=== PATIENT | female | born 1995 | race Caucasian/White ===

== ENCOUNTER 2023-06-09 18:27 | Inpatient (IN) | payer OTHER ==
[2023-06-09] MEDS ORDERED: ACETAMINOPHEN 325 MG TABLET (FP) PO PRN (19:32)
[2023-06-09] MEDS ORDERED: BENZOCAINE 20% 57 GM BOTTLE TP PRN (19:32)
[2023-06-09] MEDS ORDERED: METHYLERGONOVINE MALEATE 0.2 MG/1 ML AMP IM PRN (19:32)
[2023-06-09] MEDS ORDERED: METHYLERGONOVINE MALEATE 0.2 MG/1 ML AMP IM ONE (19:32)
[2023-06-09] MEDS ORDERED: BENZOCAINE 28 GM HEMORRHOIDAL OINTMENT TP PRN (19:32)
[2023-06-09] MEDS ORDERED: oxyCODONE HCL 5 MG TABLET PO PRN (19:32)
[2023-06-09] MEDS ORDERED: BISACODYL 10 MG SUPP.RECT RC PRN (19:32)
[2023-06-09] MEDS ORDERED: WITCH HAZEL 50% (TUCKS) 40 PAD/JAR PAD TP PRN (19:32)
[2023-06-09] MEDS ORDERED: ELECTROLYTE-148 SOLN 1,000 ML IV SCH (19:45)
[2023-06-09] MEDS ORDERED: OXYTOCIN 20 UNITS in 0.9% NS 20 UNIT/1,000 ML INFUS.BAG IV SCH (19:45)
[2023-06-09 19:47] LABS: CORD BASE EXCESS -5.4 mmol/L (0-2); CORD HCO3 19.6 mmHg (20-29); CORD PCO2 36.9 mmHg (30-78); CORD pH 7.344 (7.14-7.44)
[2023-06-09 19:49] LABS: CORD BASE EXCESS -9.9 mmol/L (0-2); CORD HCO3 18.4 mmHg (20-29); CORD PCO2 49.2 mmHg (30-78); CORD pH 7.191 (7.14-7.44)
[2023-06-09 21:03] VITALS: BMI 26.6
[2023-06-09] MEDS ORDERED: OXYTOCIN 20 UNITS in 0.9% NS 20 UNIT/1,000 ML INFUS.BAG IV ONE (21:26)
[2023-06-09 21:49] LABS: BASO % 0.2 % (0-2.0); HEMATOCRIT 36.8 % (32.4-45.2); HEMOGLOBIN 11.6 GM/dL (10.7-15.3); LYMPH % 7.1 % (8-40); MCH 24.6 pg (25.7-33.7); MCHC 31.6 g/dl (32.0-36.0); MEAN CELL VOLUME 77.9 fl (80-96); MEAN PLT VOLUME 8.8 fl (7.5-11.1); MONO % 2.8 % (3.8-10.2); NEUT % 89.9 % (42.8-82.8); PLATELET COUNT 299 10^3/uL (134-434); RBC 4.72 M/mm3 (3.60-5.2); RDW 15.5 % (11.6-15.6); WHITE BLOOD COUNT 15.1 K/mm3 (4.0-10.0)
[2023-06-09 21:59] LABS: INR 0.96 (0.83-1.09); PROTHROMBIN TIME (PATIENT) 11.1 SEC (9.7-13.0)
[2023-06-09 22:01] LABS: ACTIVATED PTT 27.8 SECONDS (25.2-36.5)
[2023-06-09 22:26] LABS: METHADONE, UR NEGATIVE (NEGATIVE); PHENCYCLIDINE,URINE NEGATIVE (NEGATIVE); URINE BENZODIAZEPINES NEGATIVE (NEGATIVE)
[2023-06-09 22:27] LABS: OPIATES, URI NEGATIVE (NEGATIVE); URINE BARBITURATES NEGATIVE (NEGATIVE)
[2023-06-09 22:31] LABS: COCAINE, UR NEGATIVE (NEGATIVE); URINE AMPHETAMINES NEGATIVE (NEGATIVE)
[2023-06-09 22:32] LABS: POTASSIUM 3.6 mmol/L (3.5-5.1)
[2023-06-09 22:33] LABS: CALCIUM 8.7 mg/dL (8.5-10.1)
[2023-06-09 22:34] LABS: BLOOD UREA NITROGEN 6.7 mg/dL (7-18)
[2023-06-09 22:37] LABS: CREATININE 0.5 mg/dL (0.55-1.3)
[2023-06-09] MEDS: IBUPROFEN 600 MG TABLET (FP) PO PRN (22:57)
[2023-06-10 08:34] LABS: BASO % 0.4 % (0-2.0); EOS % 0.8 % (0-4.5); HEMATOCRIT 30.5 % (32.4-45.2); HEMOGLOBIN 9.9 GM/dL (10.7-15.3); MCH 25.2 pg (25.7-33.7); MCHC 32.4 g/dl (32.0-36.0); MEAN PLT VOLUME 8.8 fl (7.5-11.1); MONO % 7.4 % (3.8-10.2); NEUT % 72.4 % (42.8-82.8); PLATELET COUNT 261 10^3/uL (134-434); RBC 3.91 M/mm3 (3.60-5.2); RDW 14.3 % (11.6-15.6); WHITE BLOOD COUNT 12.1 K/mm3 (4.0-10.0)
[2023-06-10] MEDS ORDERED: SENNOSIDES/DOCUSATE COMBO (SENNA PLUS) TABLET (UD) PO PRN (22:00)
[2023-06-10 22:12] VITALS: TEMP 97.7
[2023-06-11] MEDS: IBUPROFEN 600 MG TABLET (FP) PO PRN (05:17)
[2023-06-11 08:02] VITALS: RESP 16
[2023-06-11 08:04] VITALS: BP 97/59; PULSE 70
== END 2023-06-11 13:19 | disposition home or self-care (01) | DRG 560 ==
LOC: JDEL 18:27 → JLDR 18:50 → J3W 22:00
PROVIDERS: ADMIT Obstetrics & Gynecology; ATTEND Obstetrics & Gynecology
PROC: 10E0XZZ Delivery of Products of Conception, External Approach (ICD-10-PCS; principal; 2023-06-09)
DX: O80 Encounter for full-term uncomplicated delivery (principal); Z3A.37 37 weeks gestation of pregnancy; Z37.0 Single live birth
CPT/HCPCS: 36415; 36600; 80048; 80307; 82803; 85025; 85610; 85730; 86780; 86850; 86900; 86901